=== PATIENT | male | born 1970 | race African-American/Black ===

== ENCOUNTER 2018-01-09 19:52 | Emergency (ER) | payer BC ==
[2018-01-09] MEDS: LIDOCAINE WITH 8.4% SOD BICARB 3 ML DISP.SYRIN. INJ (20:45)
[2018-01-09] MEDS: IBUPROFEN 800 MG TABLET. PO (22:30)
== END 2018-01-09 22:30 | disposition home or self-care (01) ==
LOC: ER 22:30
DX: S61.411A Laceration without foreign body of right hand, initial encounter (principal); W25.XXXA Contact with sharp glass, initial encounter; Y93.89 Activity, other specified; Y92.89 Other specified places as the place of occurrence of the external cause; Y99.8 Other external cause status
CPT/HCPCS: 12001; 99283